=== PATIENT | female | born 1940 | race Asian ===

== ENCOUNTER 2022-01-26 09:32 | Emergency (ER) | payer OTHER ==
[~2022-01-26] VITALS: Ht 160 cm; Wt 47.6 kg
[2022-01-26 09:33] VITALS: BP 180/76
--- NOTE | 2022-01-26 09:33 | NUR ---
BIBA to bed 10
--- NOTE | 2022-01-26 09:35 | NUR ---
81 y/o F JOSÉ MIGUEL from [facility] c/o low back and left hip pain. Per EMS, staff states unwitnessed or unknown cause of patient's pain. A&Ox1 baseline per staff. Pt with diaper. DNR status. Pt placed onto library monitor BP 175/58, HR 59. No visible trauma noted to hip, low back. No shortening of left extremity. Bed locked in lowest position, side rails x 2. AccuChek 93. PMH: anemia, dementia, osteoarthritis Meds: trazodone, seroquel, NTG, carvedilol, amlodipine
--- NOTE | 2022-01-26 10:25 | NUR ---
Dr. Bravo is evaluating patient at bedside
--- NOTE | 2022-01-26 10:35 | NUR ---
Purewick in place.
--- NOTE | 2022-01-26 10:38 | NUR ---
Contacted Jose Barnes (son) who states patient speaks Mandarin and states he is not aware patient has a history of back or hip pain. Dr. Bravo made aware.
--- NOTE | 2022-01-26 10:38 | NUR ---
[facility]
--- NOTE | 2022-01-26 11:05 | NUR ---
Patient returned from CT by kamini and placed back onto pit furnace melter. Purewick in place.
--- NOTE | 2022-01-26 11:20 | NUR ---
Lab at bedside
[2022-01-26 11:44] LABS: BASOPHILS # (AUTO) 0.1 K/uL (0.00-0.22); BASOPHILS % (AUTO) 0.8 % (0.0-2.0); EOSINOPHILS % (AUTO) 0.1 % (0.0-4.0); HEMATOCRIT 31.1 % (36-48); LYMPHOCYTES # (AUTO) 1.7 K/uL (2.5-16.5); LYMPHOCYTES % (AUTO) 16.4 % (20.5-51.1); MEAN CORPUSCULAR HEMOGLOBIN 28 pg (27-31); MEAN CORPUSCULAR HGB CONC 32 g/dL (33-37); MEAN CORPUSCULAR VOLUME 87.4 fL (80-94); MONOCYTES # (AUTO) 0.7 K/uL (0.8-1.0); MONOCYTES % (AUTO) 6.9 % (1.7-9.3); NEUTROPHILS # (AUTO) 7.9 K/uL (1.8-7.7); NEUTROPHILS % (AUTO) 75.8 % (42.2-75.2); PLATELET COUNT (AUTO) 263 K/uL (140-450); RED BLOOD CELL COUNT(AUTO) 3.55 MIL/uL (4.20-5.40); RED CELL DISTRIBUTION WIDTH 15.4 % (11.6-13.7); WHITE BLOOD COUNT (AUTO) 10.4 K/uL (4.8-10.8)
[2022-01-26] MEDS ORDERED: LIDOCAINE 5% 1 EA PATCH TP ONE (11:57)
[2022-01-26 12:13] LABS: ALBUMIN 2.8 g/dL (3.4-5.0); ANION GAP 8.5 (8-16); ASPARTATE AMINOTRANSFERASE 33 U/L (15-37); CARBON DIOXIDE 29.1 mmol/L (21-32); CHLORIDE 108 mmol/L (98-107); CREATININE 0.6 mg/dL (0.6-1.3); GLUCOSE 105 mg/dL (74-106); POTASSIUM 3.6 mmol/L (3.5-5.1); SODIUM SERUM 142 mmol/L (136-145); UREA NITROGEN, BLOOD 20 mg/dL (7-18)
--- NOTE | 2022-01-26 12:15 | NUR ---
Contacted [facility] yarn cleaner #[id number]; patient states she needs to go to the restroom to pee; patient reoriented to Purewick in place and made aware of compression fracture. Patient states she understands. Purewick repositioned in place to low constant suction at this time.
--- NOTE | 2022-01-26 12:54 | NUR ---
Spoke with Jose (son) provided with status update. Patient reoriented to situation.
--- NOTE | 2022-01-26 13:24 | NUR ---
Patient pulled purewick and leads from cardiac catheterization technician. Reoriented to situation. No urine in suction canister at this time
[2022-01-26] MEDS ORDERED: IBUP-1842 PO (14:05)
[2022-01-26] MEDS ORDERED: LID5T TP (14:05)
--- NOTE | 2022-01-26 14:51 | NUR ---
Patient resting with both eyes closed in supine position. quality assurance monitor final remains in place. Bed locked in lowest position, side rails x 2.
--- NOTE | 2022-01-26 16:20 | NUR ---
Patient up from bed, presents agitated. Patient combative fighting staff. Reoriented to situation and assisted back onto bed.
[2022-01-26 18:50] VITALS: BP 108/67
--- NOTE | 2022-01-26 18:50 | NUR ---
Report given to Eliazar Chauhan.
--- NOTE | 2022-01-26 18:50 | NUR ---
PATIENT UNABLE TO SIGN DUAL RN SIGNATURES FOR DISCHARGE INFORMATION. ELIAZAR CHAUHAN FROM [facility] MADE AWARE OF CT RESULTS, PRESCRIBED RX, AND M&J ETA TO FACILITY. Patient discharged with v/s stable. Written and verbal after care instructions given and explained. Patient alert, oriented and verbalized understanding of instructions. Assisted to M&J gurney to ch[facility]. All questions addressed prior to discharge. ID band removed. Patient advised to follow up with PMD. Rx of Ibuprofen, Lidocaine patch given. Patient educated on indication of medication including possible reaction and side effects. Opportunity to ask questions provided and answered. Eliazar Chauhan, [facility] staff made aware of 5 minute ETA.
[2022-01-27] MEDS ORDERED: LIDOCAINE 5% 1 EA PATCH TP SCH (09:00)
== END 2022-01-26 18:50 | disposition home or self-care (01) ==
LOC: MED 09:32
DX: S22.089A Unspecified fracture of T11-T12 vertebra, initial encounter for closed fracture (principal); G89.29 Other chronic pain; F03.90 Unspecified dementia, unspecified severity, without behavioral disturbance, psychotic disturbance, mood disturbance, and anxiety; W19.XXXA Unspecified fall, initial encounter; Y93.89 Activity, other specified; Y92.89 Other specified places as the place of occurrence of the external cause; Y99.8 Other external cause status
CPT/HCPCS: 36415; 70450; 71045; 72125; 72128; 72131; 72170; 80053; 81002; 85025; 99285; Q0092

== ENCOUNTER 2022-02-11 20:18 | Emergency (ER) | payer OTHER ==
[~2022-02-11] VITALS: Ht 149.9 cm; Wt 39.0 kg
[~2022-02-11 20:18] MED LIST: IBUP-1842 PO; LID5T TP
[2022-02-11 20:23] VITALS: BP 117/59
[2022-02-11] MEDS ORDERED: CARV6.25 PO (20:58)
[2022-02-11] MEDS ORDERED: MELA3TER PO (20:58)
[2022-02-11] MEDS ORDERED: MEMA5TAB PO (20:58)
[2022-02-11] MEDS ORDERED: QUET25TA PO (20:58)
[2022-02-11] MEDS ORDERED: NITR0.4T2 SL (20:58)
[2022-02-11] MEDS ORDERED: CHOL5000 PO (20:58)
[2022-02-11] MEDS ORDERED: AMLO10TA PO (20:58)
[2022-02-11] MEDS ORDERED: TRAZ-343 PO (20:58)
[2022-02-11] MEDS ORDERED: MORPHINE SULFATE 4 MG/ML SYR IM ONE (21:15)
[2022-02-11] MEDS ORDERED: TRAM50TA1 PO (22:32)
[2022-02-11 23:30] VITALS: BP 115/60
== END 2022-02-12 01:03 | disposition home or self-care (01) ==
LOC: MED 20:18
DX: M54.9 Dorsalgia, unspecified (principal); G89.29 Other chronic pain; I10 Essential (primary) hypertension; F32.9 Major depressive disorder, single episode, unspecified; F03.90 Unspecified dementia, unspecified severity, without behavioral disturbance, psychotic disturbance, mood disturbance, and anxiety; D64.9 Anemia, unspecified
CPT/HCPCS: 99283; J2270

== ENCOUNTER 2022-04-16 22:12 | Emergency (ER) | payer OTHER ==
[~2022-04-16] VITALS: Ht 154.9 cm; Wt 40.8 kg
[2022-04-16 22:12] VITALS: BP 142/72
[~2022-04-16 22:12] MED LIST changes: +AMLO10TA PO; +CARV6.25 PO; +CHOL5000 PO; +MELA3TER PO; +MEMA5TAB PO; +NITR0.4T2 SL; +QUET25TA PO; +TRAM50TA1 PO; +TRAZ-343 PO
--- NOTE | 2022-04-16 22:12 | NUR ---
JOSÉ MIGUEL FROM [facility], W/ C/O RT WRIST SWELLING, PAIN, S/P FALL FROM COUCH
--- NOTE | 2022-04-16 22:45 | NUR ---
81 Y.O. F GARETTA FROM [facility], WITH C/O RT WRIST ,SWELLING AND PAIN, S/P FALL FROM COUCH. A&OX2, BRUISING ON ARMS, WALKS WITH LIGHT ASSIST, /GI NORMAL, RESTING IN BED. HX: DEMENTIA NKA
[2022-04-17] MEDS ORDERED: HYDROmorphone PFS 2 MG/ML SYR IM ONE ×2 (00:25→01:45)
[2022-04-17] MEDS ORDERED: IBUP-1842 PO (02:45)
[2022-04-17 04:45] VITALS: BP 140/72
--- NOTE | 2022-04-17 05:33 | NUR ---
CALLED [facility] TO RECIEVE PT, NO ONE ANSWERED PHONE.
--- NOTE | 2022-04-17 06:00 | NUR ---
CALLED [facility] TO RECIEVE PT, NO ONE ANSWERED PHONE.
--- NOTE | 2022-04-17 06:23 | NUR ---
CALLED [facility] TO RECIEVE PT, NO ONE ANSWERED PHONE.
--- NOTE | 2022-04-17 07:18 | NUR ---
Pt report given to JL YUN. Transfer of care at this time.
--- NOTE | 2022-04-17 07:43 | NUR ---
Patient discharged with v/s stable. Written and verbal after care instructions given and explained. Patient alert, oriented and verbalized understanding of instructions. Wheel Chair Assisted with to car. All questions addressed prior to discharge. ID band removed. Patient advised to follow up with PMD. Rx of IBUPROFEN given. Opportunity to ask questions provided and answered.
[2022-04-18] MEDS ORDERED: ONDA-26 PO (02:13)
[2022-04-18] MEDS ORDERED: ATI.5 PO (02:13)
[2022-04-18] MEDS ORDERED: ACET-2619 PO (02:13)
[2022-04-18] MEDS ORDERED: ARIP5TAB8 PO (02:14)
[2022-04-20] MEDS ORDERED: CEPH-588 PO (12:01)
[2022-04-24] MEDS ORDERED: CEPH500C16 PO (05:09)
== END 2022-04-17 07:43 | disposition home or self-care (01) ==
LOC: MED 22:12
DX: S52.591A Other fractures of lower end of right radius, initial encounter for closed fracture (principal); S52.611A Displaced fracture of right ulna styloid process, initial encounter for closed fracture; F03.90 Unspecified dementia, unspecified severity, without behavioral disturbance, psychotic disturbance, mood disturbance, and anxiety; I10 Essential (primary) hypertension; Z79.899 Other long term (current) drug therapy; W17.89XA Other fall from one level to another, initial encounter; Y93.89 Activity, other specified; Y92.89 Other specified places as the place of occurrence of the external cause; Y99.8 Other external cause status
CPT/HCPCS: 29125; 73110; 73130; 96372; 99284; J1170

== ENCOUNTER 2022-04-22 07:27 | Emergency (ER) | payer OTHER ==
[~2022-04-22] VITALS: Ht 152.4 cm; Wt 42.3 kg
[~2022-04-22 07:27] MED LIST changes: +ACET-2619 PO; +ARIP5TAB8 PO; +ATI.5 PO; +CEPH-588 PO; -IBUP-1842 PO; +ONDA-26 PO
[2022-04-22 07:35] VITALS: BP 156/80
--- NOTE | 2022-04-22 07:45 | NUR ---
ER AT BEDSIDE
--- NOTE | 2022-04-22 07:48 | NUR ---
PT TAKEN TO CT
--- NOTE | 2022-04-22 07:56 | NUR ---
PT RETURN FROM CT
--- NOTE | 2022-04-22 07:57 | NUR ---
81 Y/O FEMALE BIBA FROM [facility] FOR UNWITNESSED NON MECH FALL 0600. PT WAS FOUND BY FACULTY ON THE FLOOR NEAR HER BED. PT WAS SEEN BY [facility] YESTERDAY FOR SAME. A/OX1 NFP DUE TO DEMENTIA; UNLABORED BREATHING, SPEAKS CANTONESE; AMBULATORY WITH ASSISTANCE, FALL PRECAUTIONS; PT HAS EXTENSIVE BRUISING TO BOTH ARMS AND A SPLINT ON RIGHT FOREARM FROM PREVIOUS FALL. CURRENT MIDLINE FRACTURE TO RIGHT ARM. HX: DEMENTIA, HTN, UTI NKA
--- NOTE | 2022-04-22 10:15 | NUR ---
PT EATING, BEING FED BY RN
--- NOTE | 2022-04-22 10:47 | NUR ---
PT'S FAMILY, JESSE, CALLED TO ARRANGE FOR TRANSPORT BACK TO FACILITY. LEFT MESSAGE.
--- NOTE | 2022-04-22 14:19 | NUR ---
CALLED SKYLER GAR TO GIVE REPORT TO NURSE ON DUTY, [facility] [place].
[2022-04-22 14:30] VITALS: BP 142/78
--- NOTE | 2022-04-22 14:30 | NUR ---
Patient discharged with v/s stable. After care instructions provided in pt packet, called for report to nurse Amrita RN. Wheel Chair assisted to [employer]. personnel clerks supervisor met [employer] commercial front load driver and pt at [facility] to assist pt to facility. Pt ambulatory with assistance.
[2022-04-24] MEDS ORDERED: CEPH500C16 PO (05:09)
[2022-04-27] MEDS ORDERED: CEPH-588 PO (10:39)
[2022-04-27] MEDS ORDERED: TAM75 PO (10:39)
== END 2022-04-22 14:30 | disposition home or self-care (01) ==
LOC: MED 07:27
DX: S73.101A Unspecified sprain of right hip, initial encounter (principal); I10 Essential (primary) hypertension; F03.90 Unspecified dementia, unspecified severity, without behavioral disturbance, psychotic disturbance, mood disturbance, and anxiety; Z79.2 Long term (current) use of antibiotics; Z79.891 Long term (current) use of opiate analgesic; Z79.899 Other long term (current) drug therapy; W18.39XA Other fall on same level, initial encounter; Y92.129 Unspecified place in nursing home as the place of occurrence of the external cause; Y93.89 Activity, other specified; Y99.8 Other external cause status
CPT/HCPCS: 72192; 99285

== ENCOUNTER 2022-06-12 07:36 | Inpatient (IN) | payer OTHER ==
[~2022-06-12] VITALS: Ht 152.4 cm; Wt 45.4 kg
[~2022-06-12 07:36] MED LIST changes: +CEPH500C16 PO; +TAM75 PO
[2022-06-12 07:43] VITALS: BP 158/80
--- NOTE | 2022-06-12 07:48 | NUR ---
DR GILL AT BEDSIDE EVALUATING PT
--- NOTE | 2022-06-12 07:49 | NUR ---
[facility] [phone]
--- NOTE | 2022-06-12 07:49 | NUR ---
BIBA TO BED 4.
--- NOTE | 2022-06-12 07:55 | NUR ---
Patient being evaluated by DR GILL at bedside.
--- NOTE | 2022-06-12 07:59 | NUR ---
EXPEDITER SERVICE ORDER ASR [id number]
--- NOTE | 2022-06-12 08:00 | NUR ---
PATIENT IN ROOM 4 . PATIENT IN A GOWN
--- NOTE | 2022-06-12 08:09 | NUR ---
81YR OLD FEMALE BIB EMS C/O LACERATION TO FOREHEAD. PATIENT FROM [facility]. UNWITNESSED FALL. PT SPEAKS ONLY MANDARIAN. INTERPETER USED BY LEON. DENIES CP SOB. DENIES ANY GEN PAIN. PT DOES NOT REMEMBER HOW SHE GOT HER LACERATION. RESP EVEN AND UNLABORED. NO DISTRESS NOTED. PT IS A&OX3. ON BEDSIDE FAMILY MEDICINE PHYSICIAN ASSISTANT. HOB ELEVATED. BED AT LOWEST POSITION. NKDA HTN
--- NOTE | 2022-06-12 08:10 | NUR ---
LEON BECKMAN INTERPERTOR ID # [id number]. FEBRUARY.
--- NOTE | 2022-06-12 08:22 | NUR ---
PT RETURN FROM CT . DIRECTOR COMMUNITY ORGANIZATION AT BEDSIDE. COVID SWAB COLLECTED
--- NOTE | 2022-06-12 08:32 | NUR ---
81/F JOSÉ MIGUEL FROM [facility]. PER EMS, STAFF CALLED 911 STATING PATIENT HAD AN UNWITNESSED FALL WITH LACERATION TO RIGHT EYEBROW. EMS REPORTS STAFF STATED PATIENT WAS AT BASELINE ON SCENE, NO COMPLAINTS OF DIZZINESS, N/V, HEADACHE OR VISION CHANGES.
--- NOTE | 2022-06-12 08:55 | NUR ---
DR GILL AT BEDSIDE ; DERMABOND APPLIED
[2022-06-12 09:15] LABS: BASOPHILS % (AUTO) 0.4 % (0.0-2.0); EOSINOPHILS % (AUTO) 0.7 % (0.0-4.0); HEMATOCRIT 35.9 % (36-48); HEMOGLOBIN 11.8 g/dL (12.0-16.0); LYMPHOCYTES # (AUTO) 1.7 K/uL (2.5-16.5); LYMPHOCYTES % (AUTO) 32.9 % (20.5-51.1); MEAN CORPUSCULAR HEMOGLOBIN 29 pg (27-31); MEAN CORPUSCULAR HGB CONC 33 g/dL (33-37); MEAN CORPUSCULAR VOLUME 89.6 fL (80-94); MONOCYTES # (AUTO) 0.5 K/uL (0.8-1.0); MONOCYTES % (AUTO) 9.9 % (1.7-9.3); NEUTROPHILS # (AUTO) 2.8 K/uL (1.8-7.7); NEUTROPHILS % (AUTO) 56.1 % (42.2-75.2); PLATELET COUNT (AUTO) 277 K/uL (140-450); RED CELL DISTRIBUTION WIDTH 15.9 % (11.6-13.7)
[2022-06-12 09:23] LABS: APPEARANCE,URINE CLEAR (CLEAR); BILIRUBIN,URINE NEGATIVE (NEGATIVE); BLOOD, URINE NEGATIVE (NEGATIVE); COLOR,URINE YELLOW (YELLOW); LEUKOCYTE ESTERASE ,URINE NEGATIVE (NEGATIVE); NITRITE, URINE NEGATIVE (NEGATIVE); UGLUCOSE NEGATIVE (NEGATIVE)
[2022-06-12 09:30] LABS: RBC,URINE 0-5 /HPF (0-5); WBC,URINE 0-5 /HPF (0-5)
[2022-06-12 09:33] LABS: ALBUMIN 3.5 g/dL (3.4-5.0); ANION GAP 7.6 (8-16); ASPARTATE AMINOTRANSFERASE 15 U/L (15-37); CARBON DIOXIDE 31.1 mmol/L (21-32); CHLORIDE 108 mmol/L (98-107); CREATININE 0.6 mg/dL (0.6-1.3); GLUCOSE 94 mg/dL (74-106); POTASSIUM 3.7 mmol/L (3.5-5.1); SODIUM SERUM 143 mmol/L (136-145); TOTAL BILIRUBIN 0.4 mg/dL (0.0-1.0); UREA NITROGEN, BLOOD 18 mg/dL (7-18)
[2022-06-12 09:54] LABS: PROTHROMBIN TIME 10.4 secs (10.8-13.4)
--- NOTE | 2022-06-12 10:30 | NUR ---
COVID SWAB COLLECTED AND SENT TO LAB
[2022-06-12] MEDS ORDERED: ZOLPIDEM 5 MG TAB PO PRN (11:00)
[2022-06-12] MEDS ORDERED: ONDANSETRON 4 MG/2 ML VIAL IM/IVP PRN (11:00)
[2022-06-12] MEDS ORDERED: DOCUSATE SODIUM 100 MG GELCAP PO PRN (11:00)
[2022-06-12] MEDS ORDERED: POTASSIUM CHLORIDE 10 MEQ TABER PO PRN (11:00)
[2022-06-12] MEDS ORDERED: HYDROcodone/APAP 7.5/325 MG 1 TAB PO PRN (11:00)
[2022-06-12] MEDS ORDERED: guaiFENesin DM 200/20 MG-10 ML 10 ML UDC PO PRN (11:00)
[2022-06-12] MEDS: ACETAMINOPHEN 325 MG TAB PO PRN ×2 (11:05→23:17)
--- NOTE | 2022-06-12 11:28 | NUR ---
PT ADMISSION TO MED SURG. PENDING BED ASSIG
[2022-06-12 11:45] VITALS: BP 142/63
--- NOTE | 2022-06-12 11:45 | NUR ---
PT ARRIVED FROM ED ON GURNEY AND WAS ABLE TO AMBULATE TO BED INDEPENDENTLY. RECEIVED REPORT FROM ED NURSE ALBINO FOR CONTINUITY OF CARE. PT IS MANDARIN-SPEAKING ONLY, ORIENTED TO SELF, CONFUSED AND FORGETFUL. PT IS BREATHING EVEN, REGULAR, AND UNLABORED ON RA. PER ED, PT IS CONTINENT OF THE BOWELS AND BLADDER, AND HAS BEEN ABLE TO COMMUNICATE NEED FOR BATHROOM, BUT IS IN DIAPER. OVERALL SKIN IN INTACT AND LOOSE, WITH NOTED LACERATION ON RIGHT/UPPER FOREHEAD. LACERATION IS CLOSED AND CLEAN, DRESSED WITH DERMABOND. MODERATE SWELLING AROUND THE AREA IS NOTED. PT DENIES PAIN AT THE SITE, AND ALSO DENIES FALLING, STATING SHE SCRATCHED HER HEAD ON THE WALL. 22G IV NOTED ON RIGHT AC, RUNNING NS AT 60ML/HR. PT IS IN STABLE CONDITION AT THIS TIME.
--- NOTE | 2022-06-12 11:48 | NUR ---
Patient will be admitted to care of DR LOPEZ. Admited to [facility]. Will go to [id number]. Belongings list completed. Report to SUDHA YUN.
--- NOTE | 2022-06-12 11:55 | NUR ---
The patient's care was reviewed and supervised by Danelle Ramos RN.
[2022-06-12] MEDS: NACL 0.9% 1,000 ML IV SCH (12:30)
--- NOTE | 2022-06-12 13:00 | NUR ---
PT RIPPED IV OUT OF ARM, NO BLEEDING NOTED. SITE DRESSED. ATTEMPTED TO INSERT NEW IV 2X TIMES WITHOUT SUCCESS. WILL ATTEMPT ONCE AGAIN WHEN PT IS LESS AGITATED WITH ASSISTANCE.
--- NOTE | 2022-06-12 13:30 | NUR ---
PT REPEATEDLY ATTEMPTS TO GET OUT OF BED, STATING SHE WANTS TO USE THE RESTROOM. ASSISTED PT TO RESTROOM, TO WHICH PT SHE REFUSED ONCE THERE. REORIENTED PT, Addendum: 06/12/22 at 1613 by Tae Moran RN REORIENTED PT, HOWEVER, STILL SHOWS SIGNS OF CONFUSION.
[2022-06-12 14:05] LABS: CHOL/HDL RATIO 2.4 (1-4.5); FREE T4 (FREE THYROXINE) 1.14 ng/dL (0.76-1.46); MAGNESIUM 2.1 mg/dL (1.8-2.4); PHOSPHORUS 3.7 mg/dL (2.5-4.9); THYROID STIMULATING HORMONE 0.21 uIU/mL (0.34-3.74)
--- NOTE | 2022-06-12 16:00 | NUR ---
QASIM SCHAFFER ATTEMPTED TO GET PT'S VITAL SIGNS, PT REFUSED, STATING SHE WANTS TO SLEEP.
--- NOTE | 2022-06-12 17:30 | NUR ---
PT WAS REFUSING TO GO BACK INTO ROOM, PER RF TEST TECHNICIAN, PT WISHED TO WALK AROUND UNIT ALONE. I TOLD RF TEST TECHNICIAN TO RELAY IT'S OKAY FOR HER TO WALK WITH ASSISTANCE OR WITHIN VIEW OF NURSE'S STATION. RF TEST TECHNICIAN ATTEMPTED TO RELAY, BUT STATED THAT THE PT BEGAN SAYING RANDOM WORDS AND NONSENSE, ALSO STATING "I MUST DEFEND MY COUNTRY AND MYSELF. WE MUST UNITE TOGETHER." WAS ABLE TO GUIDE PT TO ROOM BEFORE FINDING PERSONNEL MEMBER TO ASSIST PT WITH WALK.
--- NOTE | 2022-06-12 18:45 | NUR ---
ASSISTED BY QASIM SCHAFFER WITH SITTING BY PT'S ROOM TO ENSURE PT DOES NOT WANDER AWAY.
--- NOTE | 2022-06-12 19:37 | NUR ---
ENDORSED PT TO [facility] NURSE CHERRISSE FOR CONTINUITY OF CARE. PT IN STABLE CONDITION BUT CONTINUES TO WANDER FREQUENTLY. DIGITAL PRODUCTION ARTIST USED TO HELP WITH PT REORIENTATION.
--- NOTE | 2022-06-12 19:38 | NUR ---
RECEIVED REPORT FROM MORNING SHIFT NURSE. PT IS WALKING TO THE ROOM. PT IS AOX1, VERY CONFUSE, ABLE TO VERBALIZE NEEDS AND ABLE TO FOLLOW COMMANDS. PT IS ON ROOM AIR AND ON MECHANICAL SOFT DIET. PT HAS NO IV ACCESS. PT SKIN IS INTACT. ALL SAFETY MEASURES IMPLEMENTED. CALL LIGHT WITHIN REACH, BED IN LOW POSITION AND BED WHEELS ON LOCK.
--- NOTE | 2022-06-12 20:00 | NUR ---
INSERTED NE IV ON RIGHT FOREARM GAUGE 24. IV IS NOW PATENT AND INTACT. ALL SAFETY MEASURES IMPLEMENTED. CALL LIGHT WITHIN REACH, BED IN LOW POSITION AND BED WHEELS ON LOCK. Addendum: 06/13/22 at 0431 by Mignon Israel RN SITE SHOULD BE ON RIGHT WRIST GAUGE 24
[2022-06-12] MEDS: carvediloL 6.25 MG TAB PO SCH (20:08)
--- NOTE | 2022-06-12 20:08 | NUR ---
ALL SCHEDULED PRESCRIBED MEDICATION WAS GIVEN TO PT PER MD ORDER. PT TOLERATED IT WELL. ALL SAFETY MEASURES IMPLEMENTED. CALL LIGHT WITHIN REACH, BED IN LOW POSITION AND BED WHEELS ON LOCK.
--- NOTE | 2022-06-12 23:17 | NUR ---
PT WAS GIVEN PRN MEDICATION PER MD ORDER DUE TO RIGHT HAND PAIN. PT TOLERATED IT WELL. ALL SAFETY MEASURES IMPLEMENTED. CALL LIGHT WITHIN REACH, BED IN LOW POSITION AND BED WHEELS ON LOCK.
[2022-06-13] VITALS: BP 119/62
--- NOTE | 2022-06-13 | NUR ---
PT WANDERS A LOT, LIKES TO WALK TO THE HALLWAY. PT WAS MANDARIN SPEAKING AND TOLD HER TO GO BACK IN BED. PT FOLLOWS, BUT STILL WALKING. ALL SAFETY MEASURES IMPLEMENTED. BED WHEELS ON LOCKED, BED IN LOW POSITION AND CALL LIGHT WITHIN REACH.
--- NOTE | 2022-06-13 02:00 | NUR ---
PT IS SITTING BESIDES ME AND I STAYS WITH THE PT. NO COMPLAIN OF PAIN THIS TIME AND REFUSED THE IV FLUID NS CONNECTED TO HER IV AT RIGHT FOREARM. NO S/S OF RESPIRATORY DISTRESS. ALL SAFETY MEASURES IMPLEMENTED. BED WHEELS ON LOCKED, BED IN LOW POSITION AND CALL LIGHT WITHIN REACH.
[2022-06-13] MEDS: NACL 0.9% 1,000 ML IV SCH (03:40)
--- NOTE | 2022-06-13 04:00 | NUR ---
PT IS STILL AWAKE, SITTING BESIDE ME AND TELLING A LOT OF STORIES IN MANDARIN. ALL SAFETY MEASURES IMPLEMENTED.
[2022-06-13 06:54] LABS: ANION GAP 11.8 (8-16); CARBON DIOXIDE 28.3 mmol/L (21-32); CHLORIDE 105 mmol/L (98-107); CREATININE 0.7 mg/dL (0.6-1.3); GLUCOSE 105 mg/dL (74-106); POTASSIUM 4.1 mmol/L (3.5-5.1); SODIUM SERUM 141 mmol/L (136-145); UREA NITROGEN, BLOOD 19 mg/dL (7-18)
[2022-06-13 06:56] LABS: BASOPHILS % (AUTO) 0.2 % (0.0-2.0); EOSINOPHILS % (AUTO) 0.6 % (0.0-4.0); HEMATOCRIT 34.8 % (36-48); HEMOGLOBIN 11.4 g/dL (12.0-16.0); LYMPHOCYTES # (AUTO) 1.6 K/uL (2.5-16.5); LYMPHOCYTES % (AUTO) 24.4 % (20.5-51.1); MEAN CORPUSCULAR HEMOGLOBIN 29 pg (27-31); MEAN CORPUSCULAR HGB CONC 33 g/dL (33-37); MEAN CORPUSCULAR VOLUME 88.5 fL (80-94); MONOCYTES # (AUTO) 0.5 K/uL (0.8-1.0); MONOCYTES % (AUTO) 7.9 % (1.7-9.3); NEUTROPHILS # (AUTO) 4.3 K/uL (1.8-7.7); NEUTROPHILS % (AUTO) 66.9 % (42.2-75.2); PLATELET COUNT (AUTO) 293 K/uL (140-450); RED BLOOD CELL COUNT(AUTO) 3.93 MIL/uL (4.20-5.40); RED CELL DISTRIBUTION WIDTH 15.6 % (11.6-13.7); WHITE BLOOD COUNT (AUTO) 6.4 K/uL (4.8-10.8)
--- NOTE | 2022-06-13 07:30 | NUR ---
RECEIVED BEDSIDE REPORT FROM MAT MAN NURSE FOR CONTINUOUS OF CARE, PT CONFUSED, AWAKE ALERT ABLE TO LET NEEDS KNOWN. ON ROOM AIR, WALKING AROUND. IV TO RIGHT HAND 24G PATENT INTACT, SL. PT REFUSED IV FLUIDS. INITIAL ASSESSMENT DONE, ALL SAFETY PRECAUTION MET, CALL LIGHT WITHIN REACH, WILL CONTINUE TO MONITOR.
--- NOTE | 2022-06-13 07:33 | NUR ---
PT IS STABLE. ENDORSED PT TO MORNING SHIFT NURSE FOR CONTINUITY OF CARE.
[2022-06-13 08:00] VITALS: BP 159/71
[2022-06-13] MEDS: carvediloL 6.25 MG TAB PO SCH (08:24)
--- NOTE | 2022-06-13 08:24 | NUR ---
DUE MEDICATIONS ADMINISTERED PT TOLERATED WELL, NO DISTRESS NOTED, WILL CONTINUE TO MONITOR.
[2022-06-13] MEDS ORDERED: PANTOPRAZOLE 40 MG TABEC PO SCH (09:00)
[2022-06-13] MEDS ORDERED: amLODIPine 5 MG TAB PO SCH (09:00)
[2022-06-13 09:07] LABS: T4 (THYROXINE) 9.8 ug/dL (4.5-12.0)
--- NOTE | 2022-06-13 10:07 | NUR ---
PATIENT HAS BEEN SCREENED AND CATEGORIZED LOW NUTRITION RISK. PATIENT WILL BE SEEN WITHIN 7 DAYS OF ADMISSION. 06/19/[address]VIEW[address] BY LUNA MITCHELL RD
[2022-06-13] MEDS ORDERED: CARV6.25 PO (10:13)
[2022-06-13] MEDS ORDERED: QUET25TA PO (10:13)
--- NOTE | 2022-06-13 10:19 | NUR ---
DC PLANNING: THE PATIENT ADMITTED FROM [facility] WITH C/O UNWITNESSED FALL AND LACERATION ABOVE THE RIGHT EYEBROW. H/O DEMENTIA, HTN, ARTHRITIS AND ANEMIA. LACERATION REPAIRED WITH DERMABOND, NO EVIDENCE OF NEURO IMPAIRMENT. CT HEAD NEGATIVE FOR ACUTE INJURY, CONTINUED ON ROUTINE MEDS OF NORVASC AND COREG, ON IVF'S. PATIENT AMBULATORY, WALKING IN THE ROCK AND ASKING TO RETURN TO [facility]. CM SPOKE WITH THE PATIENTS NURSE WHO WILL LET THE PATIENT KNOW SHE IS DISCHARGED. [facility] WILL SEND THEIR VAN AT 12 NOON TO PICK HER UP. CM SPOKE WITH THE PATIENTS SON LEIGH, UPDATED ON PATIENTS CONDITION AND ENDORSED THAT THE PATIENT WILL RETURN TO ASSISTED LIVING TODAY. LEIGH IS IN AGREEMENT WITH DC PLAN, PATIENTS NURSE ALSO CONFIRMED THAT PATIENT IS IN AGREEMENT WITH PLAN. CM WILL FOLLOW.
--- NOTE | 2022-06-13 11:50 | NUR ---
DC INSTRUCTION GIVEN, PT UNABLE TO UNDERSTAND DUE TO DEMENTIA. DC PACKAGE GIVEN. IV TAKEN OUT CATH INTACT, WILL CONTINUE TO MONITOR.
--- NOTE | 2022-06-13 12:00 | NUR ---
WALKED WITH PT TO FRONT LOBBY TO WAIT FOR RAILROAD BRAKEMAN, RAILROAD BRAKEMAN WAS SCHEDULED AT 1200.
--- NOTE | 2022-06-13 12:15 | NUR ---
PT LEFT WITH [facility] STAFF, IN STABLE CONDITION.
== END 2022-06-13 12:15 | disposition home or self-care (01) | DRG 913 ==
LOC: MED 07:36 → MMU 10:58 → MTU 11:29
PROVIDERS: ADMIT Family Medicine; ATTEND Family Medicine
PROC: 0HQ1XZZ Repair Face Skin, External Approach (ICD-10-PCS; principal; 2022-06-12)
DX: S09.90XA Unspecified injury of head, initial encounter (principal); G93.41 Metabolic encephalopathy; S00.83XA Contusion of other part of head, initial encounter; R00.1 Bradycardia, unspecified; F03.90 Unspecified dementia, unspecified severity, without behavioral disturbance, psychotic disturbance, mood disturbance, and anxiety; I10 Essential (primary) hypertension; M19.90 Unspecified osteoarthritis, unspecified site; W18.39XA Other fall on same level, initial encounter; D64.9 Anemia, unspecified; T46.5X5A Adverse effect of other antihypertensive drugs, initial encounter; Z20.822 Contact with and (suspected) exposure to COVID-19; Z79.2 Long term (current) use of antibiotics; Z91.81 History of falling; Z79.899 Other long term (current) drug therapy; Y93.89 Activity, other specified; Y92.89 Other specified places as the place of occurrence of the external cause; Y99.8 Other external cause status
CPT/HCPCS: 36415; 70450; 71045; 72125; 80048; 80053; 81001; 81003; 82150; 83036; 83690; 83735; 83880; 84100; 84436; 84439; 84443; 84479; 84484; 85025; 85610; 85730; 87081; 93005; 99285; Q0092

== ENCOUNTER 2022-09-01 07:52 | Emergency (ER) | payer OTHER, MEDICAID ==
[~2022-09-01] VITALS: Ht 160 cm; Wt 45.4 kg
[~2022-09-01 07:52] MED LIST changes: -ATI.5 PO; -CEPH-588 PO; -CEPH500C16 PO; -TAM75 PO; +TRAM-748 PO; -TRAM50TA1 PO
[2022-09-01 08:01] VITALS: BP 124/80
[2022-09-01] MEDS ORDERED: ACETAMINOPHEN 650 MG/20.3 ML UDC PO ONE (08:10)
--- NOTE | 2022-09-01 08:10 | NUR ---
BIBA TO BED 8.
--- NOTE | 2022-09-01 08:24 | NUR ---
# 8 FR Urinary catheter inserted utilizing sterile technique. Immediate return of 20 ml yellow urine noted. Urine sample collected and sent to lab. Pt tolerated procedure well.
--- NOTE | 2022-09-01 08:25 | NUR ---
Lab at bedside.
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
--- NOTE | 2022-09-01 08:36 | NUR ---
X-Ray at bedside.
--- NOTE | 2022-09-01 08:45 | NUR ---
Patient was taken to CT via [place].
--- NOTE | 2022-09-01 08:54 | NUR ---
Patient returned from CT.
[2022-09-01 08:55] LABS: BASOPHILS % (AUTO) 0.2 % (0.0-2.0); EOSINOPHILS % (AUTO) 0.1 % (0.0-4.0); HEMATOCRIT 31.4 % (36-48); HEMOGLOBIN 10.1 g/dL (12.0-16.0); LYMPHOCYTES # (AUTO) 0.9 K/uL (2.5-16.5); LYMPHOCYTES % (AUTO) 10.4 % (20.5-51.1); MEAN CORPUSCULAR HEMOGLOBIN 29 pg (27-31); MEAN CORPUSCULAR HGB CONC 32 g/dL (33-37); MEAN CORPUSCULAR VOLUME 91.6 fL (80-94); MONOCYTES # (AUTO) 0.4 K/uL (0.8-1.0); MONOCYTES % (AUTO) 4.6 % (1.7-9.3); NEUTROPHILS # (AUTO) 7.4 K/uL (1.8-7.7); NEUTROPHILS % (AUTO) 84.7 % (42.2-75.2); PLATELET COUNT (AUTO) 303 K/uL (140-450); RED BLOOD CELL COUNT(AUTO) 3.42 MIL/uL (4.20-5.40); RED CELL DISTRIBUTION WIDTH 14.4 % (11.6-13.7); WHITE BLOOD COUNT (AUTO) 8.7 K/uL (4.8-10.8)
--- NOTE | 2022-09-01 08:59 | NUR ---
WAYNE obtained, walked to lab.
[2022-09-01 09:04] LABS: ALBUMIN 3.3 g/dL (3.4-5.0); ANION GAP 7.3 (8-16); ASPARTATE AMINOTRANSFERASE 21 U/L (15-37); CARBON DIOXIDE 32.5 mmol/L (21-32); CHLORIDE 104 mmol/L (98-107); CREATININE 0.8 mg/dL (0.6-1.3); GLUCOSE 181 mg/dL (74-106); POTASSIUM 3.8 mmol/L (3.5-5.1); SODIUM SERUM 140 mmol/L (136-145); TOTAL BILIRUBIN 0.5 mg/dL (0.0-1.0); UREA NITROGEN, BLOOD 17 mg/dL (7-18)
[2022-09-01 09:57] LABS: APPEARANCE,URINE CLEAR (CLEAR); BILIRUBIN,URINE NEGATIVE (NEGATIVE); BLOOD, URINE NEGATIVE (NEGATIVE); COLOR,URINE YELLOW (YELLOW); LEUKOCYTE ESTERASE ,URINE NEGATIVE (NEGATIVE); NITRITE, URINE NEGATIVE (NEGATIVE); UGLUCOSE NEGATIVE (NEGATIVE)
[2022-09-01] MEDS ORDERED: PROPOFOL 200 MG/20 ML VIAL IV ONE (10:17)
[2022-09-01] MEDS ORDERED: PROPOFOL 1000 MG/100 ML PREMIX 100 ML IV ONE (10:18)
[2022-09-01] MEDS ORDERED: LID5T TP (10:23)
[2022-09-01] MEDS ORDERED: ACET-10509 PO (10:23)
[2022-09-01 10:25] VITALS: BP 112/75
--- NOTE | 2022-09-01 10:25 | NUR ---
Called and gave report to Onofre for patients return.
--- NOTE | 2022-09-01 10:37 | NUR ---
The patient's care was reviewed and supervised by ED Agency Nurse 8, RN, RN.
== END 2022-09-01 10:25 | disposition home or self-care (01) ==
LOC: MED 07:52
DX: S70.02XA Contusion of left hip, initial encounter (principal); Z20.822 Contact with and (suspected) exposure to COVID-19; I10 Essential (primary) hypertension; F03.90 Unspecified dementia, unspecified severity, without behavioral disturbance, psychotic disturbance, mood disturbance, and anxiety; Z79.899 Other long term (current) drug therapy; W18.30XA Fall on same level, unspecified, initial encounter; Y93.89 Activity, other specified; Y92.89 Other specified places as the place of occurrence of the external cause; Y99.8 Other external cause status
CPT/HCPCS: 36415; 70450; 72170; 73502; 80053; 81003; 82550; 84484; 85025; 87086; 87426; 99285; J2704

== ENCOUNTER 2022-09-11 17:20 | Emergency (ER) | payer OTHER, MEDICAID ==
[~2022-09-11] VITALS: Ht 149.9 cm; Wt 41.7 kg
[~2022-09-11 17:20] MED LIST changes: +ACET-10509 PO
[2022-09-11 17:30] VITALS: BP 141/63
--- NOTE | 2022-09-11 17:33 | NUR ---
BIBA BLS TO ER BED 6
--- NOTE | 2022-09-11 17:53 | NUR ---
DR CAMPOS AT BEDSIDE EVALUATING PT
[2022-09-11] MEDS ORDERED: ACETAMINOPHEN EXTRA STRENGTH 500 MG TAB PO ONE (17:55)
--- NOTE | 2022-09-11 17:59 | NUR ---
PT TO CT SCAN VIA RWAPITI.
[2022-09-11] MEDS ORDERED: diphenhydrAMINE 50 MG CAP PO ONE (18:45)
[2022-09-11] MEDS ORDERED: MECL-231 PO (18:48)
[2022-09-11] MEDS ORDERED: ACET-10509 PO (18:48)
--- NOTE | 2022-09-11 18:54 | NUR ---
SKYLER DAIGLE CONTACTED FOR CASE #[id number]
--- NOTE | 2022-09-11 19:22 | NUR ---
GAVE REPORT TO ALBINO ESPARZA.
[2022-09-11] MEDS ORDERED: LORazepam 2 MG/ML VIAL IM ONE (19:35)
[2022-09-11] MEDS ORDERED: diphenhydrAMINE 50 MG/ML VIAL IM ONE (19:35)
--- NOTE | 2022-09-11 22:15 | NUR ---
81 YR OLD FEMALE FROM [facility] C/O FALL . PT HAS BEEN DC BY ALINE [facility]IRK . NO TRANSPORTION AVAIL FROM FACILITY UNTIL TOMMORROW AM. PT IS IN BED WITH RAILS UPX2. BED AT LOWEST LEVEL. DIAPER ON PT FOR INCONT. PT IS A&OX1. SPEAKS ONLY MANDARIAN KISWAHILI
--- NOTE | 2022-09-12 00:35 | NUR ---
WALKED PT TO BATHROOM NEEDS ASSIST WITH AMBULATION
--- NOTE | 2022-09-12 02:57 | NUR ---
Patient appears to be resting comfortably in bed. Vital Signs within normal limits. Respirations even and unlabored.
--- NOTE | 2022-09-12 07:16 | NUR ---
Report recieved from ISAIAS Noland for transfer of care.
--- NOTE | 2022-09-12 07:55 | NUR ---
Sylvia-care was provided to patient.
[2022-09-12 08:08] VITALS: BP 136/69
--- NOTE | 2022-09-12 08:08 | NUR ---
Patient discharged with v/s stable. Written and verbal after care instructions given. Patient alert, oriented and verbalized understanding of instructions. Wheel Chair Assisted with to car. All questions addressed prior to discharge. ID band removed. Patient advised to follow up with PMD. Rx of Tylenol and Antivert given. Opportunity to ask questions provided and answered.
--- NOTE | 2022-09-12 08:43 | NUR ---
The patient's care was reviewed and supervised by Danelle Ramos RN.
== END 2022-09-12 08:08 | disposition home or self-care (01) ==
LOC: MED 17:20
DX: S09.90XA Unspecified injury of head, initial encounter (principal); I10 Essential (primary) hypertension; F03.90 Unspecified dementia, unspecified severity, without behavioral disturbance, psychotic disturbance, mood disturbance, and anxiety; Z79.899 Other long term (current) drug therapy; Z79.891 Long term (current) use of opiate analgesic; W01.198A Fall on same level from slipping, tripping and stumbling with subsequent striking against other object, initial encounter; Y92.89 Other specified places as the place of occurrence of the external cause; Y93.89 Activity, other specified; Y99.8 Other external cause status
CPT/HCPCS: 70450; 96372; 99285; J1200; J2060

== ENCOUNTER 2022-12-07 22:14 | Emergency (ER) | payer OTHER, MEDICAID ==
[~2022-12-07] VITALS: Ht 160 cm; Wt 40.8 kg
[~2022-12-07 22:14] MED LIST changes: +MECL-231 PO
[2022-12-07 22:42] VITALS: BP 133/73
--- NOTE | 2022-12-07 22:55 | NUR ---
Pt in bed 9, on monitor.
--- NOTE | 2022-12-07 22:55 | NUR ---
Patient resting in bed, awake, chest rise and fall symmetrical, no s/s of distress.
--- NOTE | 2022-12-08 00:30 | NUR ---
Patient resting in bed, awake, chest rise and fall symmetrical, no s/s pain or s/s of distress.
[2022-12-08 01:05] VITALS: BP 132/74
--- NOTE | 2022-12-08 01:07 | NUR ---
Report given to Tracy from [facility]. Tracy from [facility] verbalized understanding of report, no further questions.
== END 2022-12-08 01:05 | disposition home or self-care (01) ==
LOC: MED 22:14
DX: S01.01XA Laceration without foreign body of scalp, initial encounter (principal); F03.90 Unspecified dementia, unspecified severity, without behavioral disturbance, psychotic disturbance, mood disturbance, and anxiety; I10 Essential (primary) hypertension; Z79.899 Other long term (current) drug therapy; W18.30XA Fall on same level, unspecified, initial encounter; Y93.89 Activity, other specified; Y92.89 Other specified places as the place of occurrence of the external cause; Y99.8 Other external cause status
CPT/HCPCS: 70450; 72125; 72192; 99284

== ENCOUNTER 2023-01-21 08:17 | Emergency (ER) | payer OTHER, MEDICAID ==
[~2023-01-21] VITALS: Ht 165.1 cm; Wt 56.7 kg
[2023-01-21 08:26] VITALS: BP 162/84
--- NOTE | 2023-01-21 08:41 | NUR ---
PT MOVED TO BED 09 BY [facility]
[2023-01-21] MEDS ORDERED: HALOPERIDOL IM 5 MG/ML VIAL IM ONE (09:00)
--- NOTE | 2023-01-21 09:00 | NUR ---
ASSUMED PATIENT CARE, NURSING ASSESSMENT COMPLETED.
[2023-01-21] MEDS ORDERED: HALOPERIDOL IM 5 MG/ML VIAL IVP ONE (09:05)
[2023-01-21 10:49] LABS: BASOPHILS % (AUTO) 0.2 % (0.0-2.0); EOSINOPHILS % (AUTO) 0.3 % (0.0-4.0); HEMOGLOBIN 11.9 g/dL (12.0-16.0); LYMPHOCYTES # (AUTO) 1.2 K/uL (2.5-16.5); LYMPHOCYTES % (AUTO) 19.2 % (20.5-51.1); MEAN CORPUSCULAR HEMOGLOBIN 30 pg (27-31); MEAN CORPUSCULAR HGB CONC 32 g/dL (33-37); MEAN CORPUSCULAR VOLUME 92.9 fL (80-94); MONOCYTES # (AUTO) 0.4 K/uL (0.8-1.0); MONOCYTES % (AUTO) 6.9 % (1.7-9.3); NEUTROPHILS # (AUTO) 4.7 K/uL (1.8-7.7); NEUTROPHILS % (AUTO) 73.4 % (42.2-75.2); PLATELET COUNT (AUTO) 280 K/uL (140-450); RED BLOOD CELL COUNT(AUTO) 3.98 MIL/uL (4.20-5.40); RED CELL DISTRIBUTION WIDTH 14.8 % (11.6-13.7); WHITE BLOOD COUNT (AUTO) 6.4 K/uL (4.8-10.8)
[2023-01-21 11:02] LABS: ALBUMIN 3.5 g/dL (3.4-5.0); ANION GAP 11.3 (8-16); ASPARTATE AMINOTRANSFERASE 21 U/L (15-37); CARBON DIOXIDE 29.4 mmol/L (21-32); CHLORIDE 109 mmol/L (98-107); CREATININE 0.7 mg/dL (0.6-1.3); GLUCOSE 104 mg/dL (74-106); POTASSIUM 3.7 mmol/L (3.5-5.1); PROTHROMBIN TIME 10.2 secs (10.8-13.4); SODIUM SERUM 146 mmol/L (136-145); TOTAL BILIRUBIN 0.5 mg/dL (0.0-1.0); UREA NITROGEN, BLOOD 18 mg/dL (7-18)
[2023-01-21] MEDS ORDERED: LIDOCAINE/EPI MPF 1%1:200000 30 ML VIAL INJ ONE (12:41)
[2023-01-21] MEDS ORDERED: LIDOCAINE MPF 1% 10 MG/ML VIAL INJ ONE (12:45)
[2023-01-21] MEDS ORDERED: LIDOCAINE MPF 1% 5 ML ONE (14:03)
[2023-01-21] MEDS ORDERED: CLIN300C2 PO (14:29)
[2023-01-21 20:02] VITALS: BP 143/70
--- NOTE | 2023-01-21 20:04 | NUR ---
Patient discharged with v/s stable. Written and verbal after care instructions given and explained. Patient alert, oriented and verbalized understanding of instructions. Ambulatory with steady gait. All questions addressed prior to discharge. ID band removed. Patient advised to follow up with PMD. Rx of CLINDAMYCIN given. Patient educated on indication of medication including possible reaction and side effects. Opportunity to ask questions provided and answered.
== END 2023-01-21 20:02 | disposition home or self-care (01) ==
LOC: MED 08:17
DX: S02.5XXA Fracture of tooth (traumatic), initial encounter for closed fracture (principal); S01.511A Laceration without foreign body of lip, initial encounter; I10 Essential (primary) hypertension; G31.9 Degenerative disease of nervous system, unspecified; E04.1 Nontoxic single thyroid nodule; F03.90 Unspecified dementia, unspecified severity, without behavioral disturbance, psychotic disturbance, mood disturbance, and anxiety; Z86.2 Personal history of diseases of the blood and blood-forming organs and certain disorders involving the immune mechanism; Z79.899 Other long term (current) drug therapy; Y04.2XXA Assault by strike against or bumped into by another person, initial encounter; Y93.89 Activity, other specified; Y92.89 Other specified places as the place of occurrence of the external cause; Y99.8 Other external cause status
CPT/HCPCS: 12011; 36415; 70450; 70486; 70490; 71045; 72170; 80053; 85025; 85610; 85730; 96374; 99285; J1630; J2001

== ENCOUNTER 2023-02-23 10:35 | Emergency (ER) | payer OTHER, MEDICAID ==
[~2023-02-23] VITALS: Ht 154.9 cm; Wt 65.8 kg
[~2023-02-23 10:35] MED LIST changes: +CLIN300C2 PO
--- NOTE | 2023-02-23 10:40 | NUR ---
MD CABA AT BEDSIDE FOR EVALUATION
[2023-02-23] MEDS ORDERED: LIDOCAINE/EPI MPF 1%1:200000 30 ML VIAL INJ ONE ×2 (10:44→13:28)
[2023-02-23 10:45] VITALS: BP 155/70
--- NOTE | 2023-02-23 10:56 | NUR ---
The patient's care was reviewed and supervised by ONDINA ESTEVES RN.
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
--- NOTE | 2023-02-23 11:12 | NUR ---
pt wound to posterior parietal dressed with non adherent x 1, and bandaged with sven wrap x 1. bleeding controlled
--- NOTE | 2023-02-23 11:20 | NUR ---
SKYLER GAR CALLED. NO ANSWER X2
--- NOTE | 2023-02-23 11:25 | NUR ---
pt taken to ct via kamini
[2023-02-23 11:26] LABS: BASOPHILS % (AUTO) 0.2 % (0.0-2.0); EOSINOPHILS % (AUTO) 0.5 % (0.0-4.0); HEMATOCRIT 31.8 % (36-48); HEMOGLOBIN 10.6 g/dL (12.0-16.0); LYMPHOCYTES # (AUTO) 1.3 K/uL (2.5-16.5); LYMPHOCYTES % (AUTO) 27.4 % (20.5-51.1); MEAN CORPUSCULAR HEMOGLOBIN 31 pg (27-31); MEAN CORPUSCULAR HGB CONC 33 g/dL (33-37); MEAN CORPUSCULAR VOLUME 92.5 fL (80-94); MONOCYTES # (AUTO) 0.4 K/uL (0.8-1.0); MONOCYTES % (AUTO) 8.9 % (1.7-9.3); PLATELET COUNT (AUTO) 265 K/uL (140-450); RED BLOOD CELL COUNT(AUTO) 3.44 MIL/uL (4.20-5.40); RED CELL DISTRIBUTION WIDTH 14.9 % (11.6-13.7); WHITE BLOOD COUNT (AUTO) 4.7 K/uL (4.8-10.8)
--- NOTE | 2023-02-23 11:38 | NUR ---
pt brought back via kamini
[2023-02-23 11:49] LABS: ALBUMIN 3.3 g/dL (3.4-5.0); ANION GAP 9.9 (8-16); ASPARTATE AMINOTRANSFERASE 21 U/L (15-37); CARBON DIOXIDE 29.9 mmol/L (21-32); CHLORIDE 107 mmol/L (98-107); CREATININE 0.7 mg/dL (0.6-1.3); GLUCOSE 114 mg/dL (74-106); POTASSIUM 3.8 mmol/L (3.5-5.1); SODIUM SERUM 143 mmol/L (136-145); TOTAL BILIRUBIN 0.3 mg/dL (0.0-1.0); UREA NITROGEN, BLOOD 21 mg/dL (7-18)
--- NOTE | 2023-02-23 12:28 | NUR ---
PT DAUGHTERS X2 CALLED- NO ANSWER. VOICEMAIL LEFT
--- NOTE | 2023-02-23 13:01 | NUR ---
UNABLE TO CONTACT FAMILY OR FACILITY FOR TDAP CONSENT. ERMD MADE AWARE. CONSENT GIVEN BY EMRD
[2023-02-23 13:50] VITALS: BP 128/57
--- NOTE | 2023-02-23 13:50 | NUR ---
WOUND CLOSURE RE-ASSESSED BY ERMD. PRESSURE DRSG APPLIED. THOROUGH EXPLAINATION PROVIDED TO GERMAIN (GILMER), TRANSALED TO MANDARIN FOR PT. PT NODS IN AGREEMENT. GERMAIN STATES INITIALLY PT WAS UPSET BUT ONCE SHE UNDERSTOOD ER STAFF WAS HELPING SHE BECAME AGREEABLE. PT SMILES AND STATES "MAKENZIE-MAKENZIE" TRANSLATED "THANK YOU". UPON BEING SAFELY TRANSFERED INTO [facility]. PT STATES IN GREEK "THANK YOU SO MUCH". GERMAIN RE-VERBALIZES UNDERSTANDING OF ACI. AFTER CARE PACKET IN PT BELONGING BAG GIVEN TO GERMAIN AND PT. BOTH PT AND GERMAIN PRESENT ACI GIVEN VERBALLY ALONG W/ PRINT AND PLACED IN PT BELONGING BAD. DRSG REMAINS DRY AND INTACT. NAD. VSS. TO VEHICLE WITHOUT INCIDENT. Addendum: 02/23/23 at 1631 by [id number] ABOVE NOTE LITA RAO RN
== END 2023-02-23 13:50 | disposition home or self-care (01) ==
LOC: MED 10:35
DX: S01.01XA Laceration without foreign body of scalp, initial encounter (principal); D64.9 Anemia, unspecified; F03.90 Unspecified dementia, unspecified severity, without behavioral disturbance, psychotic disturbance, mood disturbance, and anxiety; I10 Essential (primary) hypertension; Z79.899 Other long term (current) drug therapy; W18.30XA Fall on same level, unspecified, initial encounter; Y93.89 Activity, other specified; Y92.89 Other specified places as the place of occurrence of the external cause; Y99.8 Other external cause status
CPT/HCPCS: 12001; 36415; 70450; 71045; 72125; 80053; 84484; 85025; 90471; 90715; 93005; 99285; J2001